=== PATIENT | female | born 1970 | race Caucasian/White ===

== ENCOUNTER → 2017-07-07 | Outpatient (CLI) | payer OTHER ==
--- NOTE | 2017-07-19 13:20 | REPMRS ---
Patient History Family history of lung cancer in father at age 71. Taking hormonal contraceptives for 10 years. The patient states she has not had a clinical breast exam in over a year. File area calling for out of state priors Digital Mammo Screening Bilat: July 07, 2017 - Exam #: [id number] Bilateral CC and MLO view(s) were taken. Technologist: Monserrat Horton Technologist Prior study comparison: June 26, 2014, digital bilateral screening mammo, performed at [facility]. FINDINGS: There are scattered fibroglandular densities. The visualized implant margins are smooth. Breast parenchymal density pattern is essentially symmetric. No dominant mass, clustered microcalcification, or archetectural distortion is evident on either side. No significant changes when compared with prior studies. ASSESSMENT: BI-RADS/ACR category 2 mammogram. Benign finding(s). Recommendation Routine screening mammogram of both breasts in 1 year (for women over age 40). Electronically Signed By: Mehran Mercedes MD 07/19/17 [id number]
== END ==
LOC: M RAD 09:44
PROVIDERS: ATTEND Family Medicine
DX: Z12.31 Encounter for screening mammogram for malignant neoplasm of breast (principal)